=== PATIENT | male | born 1985 | race Caucasian/White ===

== ENCOUNTER 2017-08-10 11:32 | Emergency (ER) | payer OTHER ==
[~2017-08-10] VITALS: Ht 175.3 cm; Wt 81.6 kg
[2017-08-10] MEDS ORDERED: BUDESONIDE 0.5 MG/2 ML NEBU NEB ONE (12:15)
[2017-08-10] MEDS ORDERED: FLUT12AE IH (12:20)
[2017-08-10] MEDS ORDERED: IPRA4AER INH (12:20)
--- NOTE | 2017-08-10 12:21 | PHYS DOC ---
Past History Past Medical History: Pneumonia Past Surgical History: No Surgical History Alcohol Use: Occasionally Drug Use: None Adult General Chief Complaint Chief Complaint: SHORTNESS OF BREATH HPI HPI Patient is a 31 year old M who presents with cough, congestion and shortness of breath over the past 5 days. He feels that his symptoms are worse with activity and improved with rest. He does have a history of pneumonia. He was seen at his doctor's office on Monday at which time he had a CT scan that showed pneumonia. He was started on antibiotics yesterday. He feels that his symptoms have remained the same. He denies worsening or improvement in symptoms at this time. Review of Systems Review of Systems Constitutional: Denies fever or chills [] Eyes: Denies change in visual acuity, redness, or eye pain [] HENT: Denies nasal congestion or sore throat [] Respiratory: Negative is except history of present illness Cardiovascular: No additional information not addressed in HPI [] GI: Denies abdominal pain, nausea, vomiting, bloody stools or diarrhea [] : Denies dysuria or hematuria [] Musculoskeletal: Denies back pain or joint pain [] Integument: Denies rash or skin lesions [] Neurologic: Denies headache, focal weakness or sensory changes [] Endocrine: Denies polyuria or polydipsia [] Family History Family History Noncontributory Current Medications Current Medications Current Medications Medications (Trade) Dose Ordered Sig/Bonnie Start Time Stop Time Status Last Admin Dose Admin Budesonide (Pulmicort) 0.5 mg 1X ONCE 08/10/17 12:15 08/10/17 12:16 UNV Allergies Allergies Allergies Coded Allergies Type Severity Reaction Last Updated Verified No Known Drug Allergies 08/10/17 No Physical Exam Physical Exam Constitutional: Well developed, well nourished, no acute distress, non-toxic appearance. [] HENT: Normocephalic, atraumatic, bilateral external ears normal, oropharynx moist, no oral exudates, nose normal. [] Eyes: PERRLA, EOMI, conjunctiva normal, no discharge. [] Neck: Normal range of motion, no tenderness, supple, no stridor. [] Cardiovascular:Heart rate regular rhythm, no murmur [] Lungs & Thorax: Moderate rhonchi noted predominantly in the left lower lobe. Abdomen: Bowel sounds normal, soft, no tenderness, no masses, no pulsatile masses. [] Skin: Warm, dry, no erythema, no rash. [] Back: No tenderness, no CVA tenderness. [] Extremities: No tenderness, no cyanosis, no clubbing, ROM intact, no edema. [] Neurologic: Alert and oriented X 3, normal motor function, normal sensory function, no focal deficits noted. [] Psychologic: Affect normal, judgement normal, mood normal. [] Current Patient Data Vital Signs Vital Signs Date Time Temp Pulse Resp B/P (MAP) Pulse Ox O2 Delivery O2 Flow Rate FiO2 08/10/17 11:40 98.7 107 22 97 Room Air EKG EKG [] Radiology/Procedures Radiology/Procedures CT report from [facility] was requested and reviewed Impressions: Radiology report describes patchy interstitial and airspace infiltrates as well as consolidation in the lingula and left lower lobe compatible with pneumonia Course & Med Decision Making Course & Med Decision Making Pertinent Labs and Imaging studies reviewed. (See chart for details) [] Dragon Disclaimer Dragon Disclaimer This chart was dictated in whole or in part using Voice Recognition software in a busy, high-work load, and often noisy Emergency Department environment. It may contain unintended and wholly unrecognized errors or omissions. Departure Departure: Impression: Primary Impression: Pneumonia Disposition: 01 HOME, SELF-CARE Condition: STABLE Referrals: NON,STAFF (PCP) Patient Instructions: Pneumonia, Adult Additional Instructions: Gomez was seen in the emergency department for cough and shortness of breath. No emergency medical condition was found on history or physical exam. The report of a CT scan he had done at [facility] was reviewed. This report showed left lower lobe pneumonia. He was encouraged to continue the Augmentin he was prescribed. He was also given a prescription for a steroid inhaler advised to continue his albuterol as needed. He is advised to return to the emergency department if he develops new or worsening symptoms. He is advised follow-up with his primary care doctor as needed for further management. Scripts Ipratropium/Albuterol Sulfate (COMBIVENT RESPIMAT INHAL) 4 Gm Aer.w.adap 1 PUFF INH TID Y for SHORTNESS OF BREATH for 7 Days, INHALER Prov: TAMIKO MCCRARY MD 08/10/17 Fluticasone Propionate (FLOVENT 110MCG HFA) 12 Gm Aer.w.adap 2 PUFF IH BID for 7 Days, #1 INHALER 2 Refills Prov: TAMIKO MCCRARY MD 08/10/17 Problem Qualifiers Primary Impression: Pneumonia Pneumonia type: due to unspecified organism Laterality: left Lung location : lower lobe of lung Qualified Codes: J18.1 - Lobar pneumonia, unspecified organism TAMIKO MCCRARY MD Aug 10, 2017 12:21
[2017-08-10 12:23] VITALS: BP 132/78
[2017-08-10] MEDS ORDERED: IPRATRPIUM/ALBUTEROL 0.5/2.5MG 3 ML NEBU. NEB ONE (12:30)
== END 2017-08-10 12:38 | disposition home or self-care (01) ==
LOC: ER 11:32
DX: J18.1 Lobar pneumonia, unspecified organism (principal)
CPT/HCPCS: 94640; 99284; J7620; J7626